=== PATIENT | female | born 1985 | race Caucasian/White ===

== ENCOUNTER 2021-09-22 19:00 | Emergency (ER) | payer OTHER ==
[~2021-09-22] VITALS: Ht 167.6 cm; Wt 72.6 kg
[2021-09-22] MEDS ORDERED: CYCLOBENZAPRINE 10 MG TABLET ONE (20:30)
[2021-09-22] MEDS ORDERED: KETOROLAC TROMETHAMINE INJ 60 MG/2 ML VIAL IM ONE (20:30)
[2021-09-22] MEDS ORDERED: KETOROLAC TROMETHAMINE INJ 30 MG/ML VIAL ONE (20:30)
[2021-09-22] MEDS ORDERED: CYCLOBENZAPRINE 10 MG TABLET PO ONE (20:30)
[2021-09-22] MEDS ORDERED: predniSONE 20 MG TABLET ONE (20:34)
[2021-09-22] MEDS ORDERED: CYCL10TA9 PO ×2 (20:59→22:08)
[2021-09-22] MEDS ORDERED: PRED20TA PO ×2 (20:59→22:08)
[2021-09-22] MEDS ORDERED: NAPR500T6 PO ×2 (20:59→22:08)
[2021-09-22 21:00] VITALS: BP 131/80
[2021-09-22] MEDS ORDERED: predniSONE 20 MG TABLET PO ONE (21:00)
--- NOTE | 2021-09-22 21:00 | NUR ---
Patient discharged to home in stable condition. Written and verbal after care instructions given. Patient verbalizes understanding of instruction.
== END 2021-09-22 21:00 | disposition home or self-care (01) ==
LOC: ER 19:07
DX: M54.31 Sciatica, right side (principal); M25.551 Pain in right hip; Z88.5 Allergy status to narcotic agent; Z79.899 Other long term (current) drug therapy
CPT/HCPCS: 99283; 96372; J7512; J1885